=== PATIENT | male | born 1970 | race Caucasian/White ===

== ENCOUNTER 2017-08-02 19:01 | Emergency (ER) | payer OTHER, MEDICAID ==
[~2017-08-02] VITALS: Ht 188 cm; Wt 136.1 kg
[~2017-08-02 19:01] MED LIST: ACCUNEB SO1.25 MG/1 INH; ACETAMINOPHEN-1 EAC1 PO; AMOXICILLIN 50500 M1 PO; ASPIR-LOW81 MG PO; AUGMENTIN 875875 MG PO; BENTYL 20 MG TA20 M1 PO; CYMBALTA20 MG PO; DEPAKOTE500 MG PO; FLEXERIL PO; GEODON20 MG PO; HYDROCODON-ACE1 EAC7 PO; HYDROCODONE-AP1 EAC6 PO; IBUPROFEN 600600 M1 PO; IBUPROFEN 800800 M1 PO; LOVASTATIN 20 M20 MG PO; METHOCARBAMOL500 M2 PO; NEXIUM40 MG PO; PENICILLIN V P500 MG PO; PENICILLIN VK250 MG PO; PLAVIX 75 MG TA75 M1 PO; PROCHAMBER1 EACH MC; SINGULAIR 10 MG10 M1 PO; SORINE 80 MG TA80 M1 PO; ULTRAM 50MG TAB50 MG PO; ZYRTEC10 MG PO
[2017-08-02] MEDS ORDERED: DEPAKOTE ER500 MG PO (19:30)
[2017-08-02] MEDS ORDERED: GEODON40 MG (19:31)
[2017-08-02 20:10] LABS: INFLUENZA A ANTIGEN None Detected (None Detect); INFLUENZA B ANTIGEN None Detected (None Detect)
[2017-08-02 21:08] VITALS: BP 134/85
== END 2017-08-02 21:10 | disposition home or self-care (01) ==
LOC: M.ERS 19:01
PROVIDERS: Emergency Medicine
DX: J06.9 Acute upper respiratory infection, unspecified (principal); J45.909 Unspecified asthma, uncomplicated; K21.9 Gastro-esophageal reflux disease without esophagitis; F31.9 Bipolar disorder, unspecified; F17.210 Nicotine dependence, cigarettes, uncomplicated; F10.99 Alcohol use, unspecified with unspecified alcohol-induced disorder; Z95.1 Presence of aortocoronary bypass graft; Z98.890 Other specified postprocedural states; Z88.8 Allergy status to other drugs, medicaments and biological substances

== ENCOUNTER 2017-12-13 19:11 | Emergency (ER) | payer OTHER ==
[~2017-12-13] VITALS: Ht 185.4 cm; Wt 88.0 kg
[~2017-12-13 19:11] MED LIST changes: +DEPAKOTE ER500 MG PO; +GEODON40 MG
[2017-12-13] MEDS ORDERED: FLECAINIDE ACET50 M1 (19:31)
[2017-12-13] MEDS ORDERED: XARELTO10 MG (19:31)
[2017-12-13] MEDS ORDERED: KEFLEX500 M1 PO (20:13)
[2017-12-13 20:29] VITALS: BP 126/73
== END 2017-12-13 20:30 | disposition home or self-care (01) ==
LOC: M.ERS 19:11
DX: S30.860A Insect bite (nonvenomous) of lower back and pelvis, initial encounter (principal); J45.909 Unspecified asthma, uncomplicated; K21.9 Gastro-esophageal reflux disease without esophagitis; F31.9 Bipolar disorder, unspecified; G47.30 Sleep apnea, unspecified; F17.210 Nicotine dependence, cigarettes, uncomplicated; Z90.49 Acquired absence of other specified parts of digestive tract; Z88.8 Allergy status to other drugs, medicaments and biological substances; W57.XXXA Bitten or stung by nonvenomous insect and other nonvenomous arthropods, initial encounter; Y93.89 Activity, other specified; Y92.89 Other specified places as the place of occurrence of the external cause; Y99.8 Other external cause status

== ENCOUNTER → 2017-12-27 | Outpatient (CLI) | payer OTHER ==
[~2017-12-27] MED LIST changes: +FLECAINIDE ACET50 M1; +KEFLEX500 M1 PO; +XARELTO10 MG
--- NOTE | 2017-12-27 15:19 | 2DMMODE ---
[place] [address] 2 D/M-MODE ECHOCARDIOGRAM Name: JOSE GAYLE Room: [facility]#: [id number] Admission: 12/27/17 Attend Phys: Myles Mabry, Discharge: Date of : 74 Date of Service: 12/27/17 1519 Report #: [id number] THIS REPORT FOR: //name// APPROVED REPORT Study performed: 12/27/2017 13:56:01 EXAM: Comprehensive 2D, Doppler, and color-flow Echocardiogram Patient Location: Out-Patient BSA: 2.55 HR: 84 bpm BP: 130/82 mmHg Other Information Study Quality: Fair Indications Pulmonary Hypertension 2D Dimensions LVEF(%): 71.07 (>50%) IVSd: 16.47 (7-11mm) LVOT Diam: 22.65 (18-24mm) LVDd: 39.34 mm PWd: 10.69 (7-11mm) Ascending Ao: 31.36 (22-36mm) LVDs: 23.67 (25-40mm) Aortic Root: 32.27 mm Ordonez's LVEF: 71.07 % Volumes Left Atrial Volume (Systole) LA ESV Index: 21.70 mL/m2 Aortic Valve AoV Peak Robi.: 1.08 m/s AO Peak Gr.: 4.63 mmHg LVOT Max P.84 mmHg AO Mean Gr.: 2.81 mmHg LVOT Mean P.02 mmHg LVOT Max V: 0.98 m/s AO V2 VTI: 19.14 cm LVOT Mean V: 0.66 m/s TODD (VTI): 3.95 cm2 LVOT V1 VTI: 18.76 cm Mitral Valve E/A Ratio: 1.11 MV Decel. Time: 182.33 ms MV E Max Robi.: 0.53 m/[place] [address] 2 D/M-MODE ECHOCARDIOGRAM Name: JOSE GAYLE Room: [facility]#: [id number] Admission: 12/27/17 Attend Phys: Myles Mabry, Discharge: Date of : 74 Date of Service: 12/27/17 1519 Report #: [id number] PHT: 52.88 ms MVA (PHT): 4.16 cm2 TDI E/Lateral E': 5.30 E/Medial E': 4.08 Medial E' Robi.: 0.13 m/s Lateral E' Robi.: 0.10 m/s Pulmonary Valve PV Peak Robi.: 1.53 m/s PV Peak Gr.: 9.39 mmHg Tricuspid Valve RAP Estimate: 5.00 mmHg TR Peak Gr.: 34.42 mmHg RVSP: 39.42 mmHg PA Pressure: 39.42 mmHg Left Ventricle The left ventricle is normal size. There is normal LV segmental wall motion. There is normal left ventricular wall thickness. Left ventricular systolic function is normal. The left ventricular ejection fraction is within the normal range. LVEF is 60-65%. The left ventricular diastolic function is normal. Right Ventricle Right ventricle is mild to moderately dilated. The right ventricular systolic function is normal. Atria The left atrium size is normal. Right atrium is mildly dilated. Aortic Valve The aortic valve is normal in structure. No aortic regurgitation is present. There is no aortic valvular stenosis. Mitral Valve The mitral valve is normal in structure. Trace mitral regurgitation. No evidence of mitral valve stenosis. Tricuspid Valve The tricuspid valve is normal in structure. Mild tricuspid regurgitation. Pulmonic Valve The pulmonary valve is normal in structure. Moderate to severe [place] [address] 2 D/M-MODE ECHOCARDIOGRAM Name: JOSE GAYLE Room: [facility]#: [id number] Admission: 12/27/17 Attend Phys: Myles Mabry, Discharge: Date of : 74 Date of Service: 12/27/17 1519 Report #: [id number] Great Vessels The aortic root is normal in size. IVC is normal in size and collapses with >50% inspiration Pericardium There is no pericardial effusion. <Conclusion> The left ventricle is normal size. There is normal left ventricular wall thickness. Left ventricular systolic function is normal. The left ventricular ejection fraction is within the normal range. LVEF is 60-65%. Right ventricle is mild to moderately dilated. The right ventricular systolic function is normal. The left atrium size is normal. Right atrium is mildly dilated. The aortic valve is normal in structure. The mitral valve is normal in structure. Trace mitral regurgitation. Moderate pulmonic regurgitation. The aortic root is normal in size. IVC is normal in size and collapses with >50% inspiration There is no pericardial effusion. There is normal LV segmental wall motion. <ELECTRONICALLY SIGNED> By: Dontae Zarco MD, FACC 12/27/17 1519 1519 1519 Dontae Zarco MD, FACC /INF
== END ==
LOC: M.CRD 11-29 14:00
DX: I37.1 Nonrheumatic pulmonary valve insufficiency (principal); I07.1 Rheumatic tricuspid insufficiency; I48.91 Unspecified atrial fibrillation

== ENCOUNTER 2019-01-31 14:21 | Emergency (ER) | payer OTHER, MEDICAID ==
[~2019-01-31] VITALS: Ht 185.4 cm; Wt 136.1 kg
[2019-01-31 14:39] VITALS: BP 133/89
[2019-01-31] MEDS ORDERED: SINGULAIR 10 MG10 M1 PO (14:44)
[2019-01-31] MEDS ORDERED: OXYBUTYNIN 5 MG5 M2 PO (14:45)
[2019-01-31] MEDS ORDERED: LIPITOR10 MG PO (14:45)
[2019-01-31] MEDS ORDERED: FLEXERIL PO (14:45)
[2019-01-31] MEDS ORDERED: GEODON20 MG PO (14:45)
[2019-01-31] MEDS ORDERED: LATUDA20 MG PO (14:46)
== END 2019-01-31 15:43 | disposition home or self-care (01) ==
LOC: M.ERS 14:21
DX: J06.9 Acute upper respiratory infection, unspecified (principal); J45.909 Unspecified asthma, uncomplicated; K21.9 Gastro-esophageal reflux disease without esophagitis; F31.9 Bipolar disorder, unspecified; E78.5 Hyperlipidemia, unspecified; I48.91 Unspecified atrial fibrillation; G47.30 Sleep apnea, unspecified; F17.210 Nicotine dependence, cigarettes, uncomplicated; Z88.8 Allergy status to other drugs, medicaments and biological substances; Z90.49 Acquired absence of other specified parts of digestive tract

== ENCOUNTER 2019-02-12 10:02 | Emergency (ER) | payer OTHER, MEDICAID ==
[~2019-02-12] VITALS: Ht 188 cm; Wt 136.1 kg
[~2019-02-12 10:02] MED LIST changes: +LATUDA20 MG PO; +LIPITOR10 MG PO; +OXYBUTYNIN 5 MG5 M2 PO
[2019-02-12] MEDS ORDERED: TESTONE CI200 MG/1 M IM (10:08)
[2019-02-12] MEDS ORDERED: CHANTIX1 MG PO (10:09)
[2019-02-12] MEDS ORDERED: LATUDA80 MG PO (10:09)
[2019-02-12] MEDS ORDERED: OMEPRAZOLE40 MG PO (10:10)
[2019-02-12] MEDS ORDERED: ZANTAC 150MG T150 MG PO (10:13)
[2019-02-12] MEDS ORDERED: VITAMIN D3400 UNIT PO (10:14)
[2019-02-12 10:27] LABS: URINE BILIRUBIN NEGATIVE (Negative); URINE BLOOD NEGATIVE (Negative); URINE CLARITY CLEAR; URINE COLOR YELLOW; URINE GLUCOSE-RANDOM NEGATIVE (Negative); URINE KETONES NEGATIVE (Negative); URINE LEUKOCYTES-REFLEX NEGATIVE (Negative); URINE NITRITE-REFLEX NEGATIVE (Negative); URINE PROTEIN NEGATIVE (Negative); URINE SPECIFIC GRAVITY 1.015 (1.005-1.030); URINE UROBILINOGEN 0.2 E.U./dl (0.2-1.0)
[2019-02-12 10:30] VITALS: BP 140/73
[2019-02-12 10:38] LABS: AMP/METHAMP Negative (Negative); BARBITURATES Negative (Negative); BENZODIAZEPINES Negative (Negative); COCAINE Negative (Negative); METHADONE Negative (Negative); OPIATES Negative (Negative); PCP Negative (Negative); THC Negative (Negative)
== END 2019-02-12 10:30 | disposition home or self-care (01) ==
LOC: M.ERS 10:02
PROVIDERS: Family Medicine
DX: R45.4 Irritability and anger (principal); G47.30 Sleep apnea, unspecified; K21.9 Gastro-esophageal reflux disease without esophagitis; F31.9 Bipolar disorder, unspecified; E78.5 Hyperlipidemia, unspecified; I48.91 Unspecified atrial fibrillation; F17.210 Nicotine dependence, cigarettes, uncomplicated; Z88.8 Allergy status to other drugs, medicaments and biological substances; Z90.49 Acquired absence of other specified parts of digestive tract; Z79.899 Other long term (current) drug therapy

== ENCOUNTER 2019-03-11 20:37 | Emergency (ER) | payer OTHER, MEDICAID ==
[~2019-03-11] VITALS: Ht 185.4 cm; Wt 136.1 kg
[~2019-03-11 20:37] MED LIST changes: +CHANTIX1 MG PO; +LATUDA80 MG PO; +OMEPRAZOLE40 MG PO; +TESTONE CI200 MG/1 M IM; +VITAMIN D3400 UNIT PO; +ZANTAC 150MG T150 MG PO
[2019-03-11 22:07] VITALS: BP 135/97
== END 2019-03-11 22:08 | disposition home or self-care (01) ==
LOC: M.ERS 20:37
DX: R51 Headache (principal); J45.909 Unspecified asthma, uncomplicated; G47.30 Sleep apnea, unspecified; I48.91 Unspecified atrial fibrillation; E78.5 Hyperlipidemia, unspecified; F31.9 Bipolar disorder, unspecified; M19.90 Unspecified osteoarthritis, unspecified site; F17.210 Nicotine dependence, cigarettes, uncomplicated; Z90.49 Acquired absence of other specified parts of digestive tract; Z98.890 Other specified postprocedural states; Z88.6 Allergy status to analgesic agent

== ENCOUNTER 2019-03-22 18:16 | Emergency (ER) | payer OTHER, MEDICAID ==
[~2019-03-22] VITALS: Ht 188 cm; Wt 136.1 kg
[2019-03-22 19:12] VITALS: BP 151/95
== END 2019-03-22 19:13 | disposition home or self-care (01) ==
LOC: M.ERS 18:16
DX: M25.561 Pain in right knee (principal); I10 Essential (primary) hypertension; K21.9 Gastro-esophageal reflux disease without esophagitis; J45.909 Unspecified asthma, uncomplicated; M19.90 Unspecified osteoarthritis, unspecified site; E78.5 Hyperlipidemia, unspecified; I48.91 Unspecified atrial fibrillation; G47.30 Sleep apnea, unspecified; F31.9 Bipolar disorder, unspecified; F17.210 Nicotine dependence, cigarettes, uncomplicated; Z90.49 Acquired absence of other specified parts of digestive tract; Z88.8 Allergy status to other drugs, medicaments and biological substances

== ENCOUNTER 2019-06-25 20:57 | Emergency (ER) | payer OTHER, MEDICAID ==
[~2019-06-25] VITALS: Ht 185.4 cm; Wt 136.1 kg
[2019-06-25] MEDS ORDERED: PREDNISONE 20 M20 M1 PO (21:38)
[2019-06-25] MEDS ORDERED: VENTOLIN HFA 1818 GM INH (21:38)
[2019-06-25 21:44] VITALS: BP 144/79
== END 2019-06-25 21:45 | disposition home or self-care (01) ==
LOC: M.ERS 20:57
DX: J45.901 Unspecified asthma with (acute) exacerbation (principal); I10 Essential (primary) hypertension; I48.91 Unspecified atrial fibrillation; E78.5 Hyperlipidemia, unspecified; G47.30 Sleep apnea, unspecified; R11.0 Nausea; R42 Dizziness and giddiness; R07.89 Other chest pain; K21.9 Gastro-esophageal reflux disease without esophagitis; F31.9 Bipolar disorder, unspecified; F17.210 Nicotine dependence, cigarettes, uncomplicated; Z88.8 Allergy status to other drugs, medicaments and biological substances; Z90.49 Acquired absence of other specified parts of digestive tract

== ENCOUNTER → 2019-08-07 | Outpatient (CLI) | payer OTHER, MEDICAID ==
[~2019-08-07] MED LIST changes: +PREDNISONE 20 M20 M1 PO; +VENTOLIN HFA 1818 GM INH
--- NOTE | 2019-08-07 15:50 | 2DMMODE ---
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 Time: 209.27 ms MV E Max Robi.: 0.63 m/s MV PHT: 60.69 ms MVA (PHT): 3.63 cm2 [place] [address] 2 D/M-MODE ECHOCARDIOGRAM Name: JOSE GAYLE Room: [facility]#: [id number] Admission: 08/07/19 Attend Phys: Lex Lovell Discharge: Date of : 74 Date of Service: 08/07/19 1549 Report #: [id number] TDI E/Lateral E': 3.32 E/Medial E': 6.30 Medial E' Robi.: 0.10 m/s Lateral E' Robi.: 0.19 m/s Pulmonary Valve PV Peak Robi.: 1.52 m/s PV Peak Gr.: 9.22 mmHg Tricuspid Valve RAP Estimate: 5.00 mmHg TR Peak Gr.: 23.47 mmHg RVSP: 28.47 mmHg PA Pressure: 28.47 mmHg Left Ventricle The left ventricle is normal size. There is normal LV segmental wall motion. There is normal left ventricular wall thickness. Left ventricular systolic function is normal. The left ventricular ejection fraction is within the normal range. LVEF is 55-60%. The left ventricular diastolic function is normal. Right Ventricle Right ventricle is mildly dilated. The right ventricular systolic function is normal. Atria The left atrium size is normal. The right atrium size is normal. Aortic Valve Mild aortic valve sclerosis. No aortic regurgitation is present. There is no aortic valvular stenosis. Mitral Valve The mitral valve is normal in structure. There is no mitral valve regurgitation noted. No evidence of mitral valve stenosis. Tricuspid Valve The tricuspid valve is normal in structure. Mild tricuspid regurgitation. Pulmonic Valve The pulmonary valve is normal in structure. Moderate pulmonic regurgitation[place] [address] 2 D/M-MODE ECHOCARDIOGRAM Name: JOSE GAYLE Room: [facility]#: [id number] Admission: 08/07/19 Attend Phys: Lex Lovell Discharge: Date of : 74 Date of Service: 08/07/19 1549 Report #: [id number] The aortic root is normal in size. IVC is normal in size and collapses >50% with inspiration. Pericardium There is no pericardial effusion. <Conclusion> The left ventricle is normal size. There is normal left ventricular wall thickness. Left ventricular systolic function is normal. The left ventricular ejection fraction is within the normal range. LVEF is 55-60%. The left ventricular diastolic function is normal. Right ventricle is mildly dilated. The right ventricular systolic function is normal. The left atrium size is normal. The right atrium size is normal. Mild aortic valve sclerosis. No aortic regurgitation is present. There is no aortic valvular stenosis. The mitral valve is normal in structure. The tricuspid valve is normal in structure. Mild tricuspid regurgitation. IVC is normal in size and collapses >50% with inspiration. There is no pericardial effusion. There is normal LV segmental wall motion. <ELECTRONICALLY SIGNED> By: Dontae Zarco MD, FACC 08/07/19 1549 1549 1549 Dontae Zarco MD, FACC /INF
== END ==
LOC: M.CRD 13:49
DX: I08.8 Other rheumatic multiple valve diseases (principal); I48.92 Unspecified atrial flutter; Q24.9 Congenital malformation of heart, unspecified

== ENCOUNTER 2019-12-18 19:26 | Emergency (ER) | payer OTHER, MEDICAID ==
[~2019-12-18] VITALS: Ht 188 cm; Wt 123.8 kg
--- NOTE | ~2019-12-18 | EMS ---
[place] [address] EMS Patient Care Report Name: [facility]LE [id number] Admission: 12/18/19 Attend Phys: Discharge: 12/18/19 Date of : 74 Report #: [id number] THIS REPORT FOR: //name// Report Transmitted: 12/25/2019 10:43 EMS Care Summary [facility] Incident [id number] @ 12/18/2019 18:27 Incident Location [address] [place] [address] Patient JOSE GAYLE Male, 49 Years 1970 Patient Address [address] [place] [address] Patient History Hypertension (HTN),Hyperlipidemia,Bipolar II Disorder,Depression,Anxiety,Atrial Fibrillation,Sleep Apnea, Patient Allergies Seasonal allergy,Zoloft, Patient Medications Other, Xarelto, Flecainide, Tizanidine, Amoxicillin, Topiramate, Fluticasone, Hydrochlorothiazide (Hctz), Docusate Sodium, Singulair, Atorvastatin, Oxybutynin, Omeprazole, Losartan, Chief Complaint Chest wall pain, worse with taking a deep breath Disposition Transported No Lights/[place] Dispatch Reason Breathing Problem Transported To [facility] D - Dispatched for difficulty breathing and chest pain after exposure to [address] [place] [address] EMS Patient Care Report Name: JOSE GAYLE Room: [facility]#: [id number] Admission: 12/18/19 Attend Phys: Discharge: 12/18/19 Date of : 74 Report #: [id number] chemical fumes. 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 He states that it has continued, however, and today he became worried that maybe it was more than just the exposure and might be related to his underlying atrial fibrillation. He denies difficulty breathing, denies shortness of breath or cough, but states he gets a sharp and burning pain in his lungs and left chest wall when he takes a deep breath, and he is beginning to feel anxious and worried, and does not feel he should wait any longer to see his doctor about it. He has taken Tylenol at home to treat it without improvement Wednesday and Wednesday, but not yesterday or today because he felt it was not helping. He reports no one around him has any respiratory symptoms or signs of illness. He reports no known exposure to anyone with respiratory symptoms or febrile illness. H - The patient has a history of atrial fibrillation, hypertension, bipolar disorder, depression, anxiety, seasonal allergies, and high cholesterol. He reports no recent changes to medications, and states he sees his healthcare providers regularly for prescription medication adjustments. He reports his atrial fibrillation is controlled by his blood pressure medications and he is not on any blood thinners. He denies any significant illnesses or surgeries. Allergies to ZOLOFT. A - Primary: Airway is patent. Breathing is regular, quiet, and nonlabored. Skin is pink, warm, and dry. No signs of bleeding. No disability noted. Exposure to chemical fumes at onset of symptoms 3 days prior and cannot rule out continued exposure to lower levels of residual fumes in the home during the past 3 days. History of atrial fibrillation. Secondary: See focused assessment. R - Anterior chest wall pain and painful breathing after exposure to chemical fumes. T - Assessment, vitals monitoring, ECG, 12 lead, IV access, blood glucose check, blood draw, Zofran, Fentanyl. Summary: Arrived to find front entrance to home blocked, sign posted directing visitors to side door, which had a hand-printed sign stating "Stay the fuck out of my house". The patient shouted through the closed door that he was coming outside. Due to safety concerns as well as concerns for the exposure to fumes reported by the patient, the patient was asked via dispatch if he was able to meet us outside the home, and he had agreed to do so. He came out of the side door, was pleasant and appropriate in answering questions, and initial history and assessment was performed prior to moving to the ambulance. The patient reported no changes or increases in symptoms with ambulation, and no shortness of breath, and was assisted onto the stretcher and into the ambulance, all straps secured and stretcher secured to ambulance. Patient was transported to [facility] ER per his request due to his cardiac history, ongoing care and assessments en route as noted above. Radio report given en [facility] [address] [place] [address] EMS Patient Care Report Name: JOSE GAYLE Room: [facility]#: [id number] Admission: 12/18/19 Attend Phys: Discharge: 12/18/19 Date of : 74 Report #: [id number] route, verbal report on transfer of patient care to nursing staff ER bed 10. The patient arrived in improved condition, rating his pain 0/10. EOR _L. Js __ Initial Vitals @18:34P: 90,R: 20,BP: 154/76,Pain: 6/10,GCS: 15,Temp: 97.3F,Glucose: 97,SpO2: 99,Revised Trauma: 12, @18:37P: 100,R: 18,Pain: 6/10,GCS: 15,SpO2: 98,TX Suspected: false @18:51P: 85,R: 16,BP: 155/90,Pain: 4/10,GCS: 15,SpO2: 99,Revised Trauma: 12, @18:57P: 80,R: 14,BP: 146/86,Pain: 4/10,GCS: 15,SpO2: 98,Revised Trauma: 12,TX Suspected: false @19:02P: 84,R: 14,BP: 137/89,Pain: 2/10,GCS: 15,SpO2: 98,Revised Trauma: 12, @19:11P: 84,R: 14,BP: 141/88,Pain: 0/10,GCS: 15,SpO2: 98,Revised Trauma: 12, @19:21P: 88,R: 14,BP: 148/88,Pain: 0/10,GCS: 15,SpO2: 99,Revised Trauma: 12, Assessments @18:34MENTAL:Person Oriented,Time Oriented,Place Oriented,Event Oriented,SKIN:HEENT:Head/Face: No Abnormalities,Neck/Airway: No Abnormalities,LUNG SOUNDS:General: Diarrhea,ABDOMEN:General: Diarrhea,PELVIS//GI:No Abnormalities,EXTREMITIES:Left Arm: No Abnormalities,Right Arm: No Abnormalities,Left Leg: No Abnormalities,Right Leg: No Abnormalities,PULSE:Pedal: 2+ Normal,Radial: 2+ Normal,NEURO:No Abnormalities,@19:15MENTAL:Time Oriented,Person Oriented,Place Oriented,Event Oriented,SKIN:HEENT:Head/Face: No Abnormalities,LUNG SOUNDS:General: No Abnormalities,ABDOMEN:General: No Abnormalities,PELVIS//GI:EXTREMITIES:Left Arm: No Abnormalities,Right Arm: No Abnormalities,Left Leg: No Abnormalities,Right Leg: No Abnormalities,PULSE:Radial: 2+ Normal,Pedal: 2+ Normal,NEURO:No Abnormalities, Impression Chest Pain, Other (Non-Cardiac) Procedures @18:34ALS AssessmentResponse: UnchangedSucceeded@19:00Fentanyl - 25 Micrograms (mcg) - Intravenous (IV)Response: Improved@18:56Zofran - 4 Milligrams (mg) - Intravenous (IV)Response: Improved@18:44Saline Lock 10cc (20 ga) Site: Antecubital-LeftResponse: ImprovedSucceeded@18:44 cc (20 ga) Site: Antecubital-LeftResponse: UnchangedSucceeded@18:4312-Lead ECGResponse: UnchangedSucceeded@19:0612-Lead ECGResponse: UnchangedSucceeded Timeline 18:24,Call Received 18:27,Dispatched 18:28,[place] [address] EMS Patient Care Report Name: GAYLEJOSE Room: [facility] Arellano#: [id number] Admission: 12/18/19 Attend Phys: Discharge: 12/18/19 Date of : 74 Report #: [id number] 18:29,On Scene 18:34,At Patient 18:34,ALS Assessment,Response: UnchangedSucceeded, 18:34,BP: 154/76 M,PULSE: 90,RR: 20 R,SPO2: 99 Ox,ETCO2: ,B,PAIN: 6,GCS: 15, 18:37,BP: / M,PULSE: 100,RR: 18 R,SPO2: 98 Ox,ETCO2: ,BG: ,PAIN: 6,GCS: 15, 18:43,12-Lead ECG,Response: UnchangedSucceeded, 18:44,Saline Lock 10cc 20 ga Site: Antecubital-Left,Response: ImprovedSucceeded, 18:44, cc 20 ga Site: Antecubital-Left,Response: UnchangedSucceeded, 18:45,Depart Scene 18:51,BP: 155/90 M,PULSE: 85,RR: 16 R,SPO2: 99 Ox,ETCO2: ,BG: ,PAIN: 4,GCS: 15, 18:56,Zofran - 4 Milligrams (mg) - Intravenous (IV),Response: Improved 18:57,BP: 146/86 M,PULSE: 80,RR: 14 R,SPO2: 98 Ox,ETCO2: ,BG: ,PAIN: 4,GCS: 15, 19:00,Fentanyl - 25 Micrograms (mcg) - Intravenous (IV),Response: Improved 19:02,BP: 137/89 M,PULSE: 84,RR: 14 R,SPO2: 98 Ox,ETCO2: ,BG: ,PAIN: 2,GCS: 15, 19:06,12-Lead ECG,Response: UnchangedSucceeded, 19:11,BP: 141/88 M,PULSE: 84,RR: 14 R,SPO2: 98 Ox,ETCO2: ,BG: ,PAIN: 0,GCS: 15, 19:20,At Destination 19:21,BP: 148/88 M,PULSE: 88,RR: 14 R,SPO2: 99 Ox,ETCO2: ,BG: ,PAIN: 0,GCS: 15, 20:08,Call Closed Disclaimer v1.1 Copyright 2020 [employer] This EMS Care Summary contains data elements from the applicable legal record (which may be displayed differently). It is designed to provide pertinent information for the following purposes: continuity of care, clinical quality, and state data reporting. The complete legal record is available to ED staff and administrators of the receiving hospital in [employer]'s Patient Tracker. All data is provided "as is."
[2019-12-18] MEDS ORDERED: COZAAR 50 MG TA50 M1 PO (19:36)
[2019-12-18] MEDS ORDERED: TOPAMAX100 MG PO (19:38)
[2019-12-18] MEDS ORDERED: COLACE100 MG PO (19:39)
[2019-12-18] MEDS ORDERED: HYDROCHLOROTH12.5 M1 PO (19:39)
[2019-12-18 19:49] LABS: HEMOGLOBIN 16.2 gm/dL (14.0-18.0); MCH 29.4 pg (26.0-34.0); MPV 9.6 fl. (7.2-11.1); NUCLEATED RBCS 0 /100WBC; RBC 5.51 mil/uL (4.50-6.00)
[2019-12-18 19:51] LABS: ABSOLUTE BASOPHILS 0.1 thou/uL (0.0-0.2); ABSOLUTE MONOCYTES 1.2 thou/uL (0.0-1.2); ABSOLUTE NEUTROPHILS 5.6 thou/uL (1.6-8.1); BASOPHILS 0.7 %; EOSINOPHILS 0.3 %; HEMATOCRIT 47.8 % (42.0-52.0); LYMPHOCYTES 22.7 %; MCHC 33.9 g/dL (28.0-37.0); MCV 86.7 fL (80.0-100.0); MONOCYTES 13.1 %; PLATELET COUNT* 301 thou/uL (150-400); POLYS 63.2 %; RDW-CV 14.4 % (10.5-14.5); WBC 8.9 thou/uL (4.0-11.0)
[2019-12-18 20:01] LABS: APTT 28.7 Seconds (25.0-31.3); INR 1.1; PROTIME 11.1 Seconds (9.20-11.50)
[2019-12-18 20:05] LABS: CALCIUM 9.4 mg/dL (8.5-10.1); CREATININE 0.9 mg/dL (0.6-1.3)
[2019-12-18 20:09] LABS: POTASSIUM 2.8 mmol/L (3.5-5.1)
[2019-12-18 20:19] LABS: MAGNESIUM 1.9 mg/dL (1.8-2.4); TOTAL BILIRUBIN 1.2 mg/dL (<0.1-1.0); TOTAL PROTEIN 8.3 g/dL (6.4-8.2)
[2019-12-18 20:53] VITALS: BP 155/62
--- NOTE | 2019-12-19 16:24 | EKG ---
[place] [address] ELECTROCARDIOGRAM REPORT Name: JOSE GAYLE Room: [facility]#: [id number] Admission: 12/18/19 Attend Phys: Discharge: 12/18/19 Date of : 74 Date of Service: 12/18/191928 Report #: [id number] THIS REPORT FOR: //name// [facility] ED Test Date: 2019-12-18 Test Time: 19:29:39 Pat Name: JOSE GAYLE Department: Room: Gender: Patient Biller: [place] : 1970 Requested By: Cyril Zurita Order Number: [id number] MD: Dontae Zarco Measurements Intervals [place] Rate: 88 P: 70 CA: 189 QRS: 75 QRSD: 110 T: 33 QT: 432 QTc: 523 Interpretive Statements Sinus rhythm Probable left atrial enlargement Prolonged QT interval Compared to ECG 02/09/2015 07:35:42 Prolonged QT interval now present Sinus bradycardia no longer present Incomplete right bundle-branch block persists Electronically Signed On 12-19-2019 16:22:01 CDT by Dontae Zarco [email or web address] <ELECTRONICALLY SIGNED> By: Dontae Zarco MD, [facility] 12/19/19 1622 28 28 Dontae Zarco MD, [facility] /EPI
== END 2019-12-18 20:54 | disposition home or self-care (01) ==
LOC: M.ERS 19:26
PROVIDERS: Family Medicine
DX: E87.6 Hypokalemia (principal); R07.89 Other chest pain; I10 Essential (primary) hypertension; I48.91 Unspecified atrial fibrillation; E78.5 Hyperlipidemia, unspecified; J45.909 Unspecified asthma, uncomplicated; K21.9 Gastro-esophageal reflux disease without esophagitis; G47.30 Sleep apnea, unspecified; F31.9 Bipolar disorder, unspecified; F17.210 Nicotine dependence, cigarettes, uncomplicated; Z90.49 Acquired absence of other specified parts of digestive tract; Z88.8 Allergy status to other drugs, medicaments and biological substances